=== PATIENT | female | born 1955 | race American Indian/Alaskan Native ===

== ENCOUNTER 2018-01-20 02:36 | Emergency (ER) | payer MEDICARE ==
[2018-01-20 02:51] VITALS: BMI 29.5
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
[2018-01-20] MEDS: Albuterol-Ipratrop 3 mg / 0.5 (3 ml) UD IH SCH ×3 (03:20→03:45)
[2018-01-20] MEDS ORDERED: Promethazine/Cod 6.25mg-10mg/5ml Syr UD PO STA (03:24)
[2018-01-20 06:37] VITALS: PULSE 80; RESP 18; O2SAT 98
--- NOTE | 2018-01-20 09:07 | RAD ---
Date of service: 01/20/2018 HISTORY: cp COMPARISON: CT 02/08/2016 FINDINGS: LUNGS: There is linear scarring in the left lung apex with pleural thickening. This is unchanged PLEURA: No significant pleural effusion identified, no pneumothorax apparent. CARDIOVASCULAR: No aortic atherosclerotic calcification present. Normal cardiac size. No pulmonary vascular congestion. OSSEOUS STRUCTURES: No significant abnormalities. VISUALIZED UPPER ABDOMEN: Normal. OTHER FINDINGS: None. IMPRESSION: No active disease.
== END 2018-01-20 06:37 | disposition home or self-care (01) ==
LOC: ED 02:36
DX: H66.92 Otitis media, unspecified, left ear (principal); T59.891A Toxic effect of other specified gases, fumes and vapors, accidental (unintentional), initial encounter; Y92.009 Unspecified place in unspecified non-institutional (private) residence as the place of occurrence of the external cause; I10 Essential (primary) hypertension; F17.210 Nicotine dependence, cigarettes, uncomplicated

== ENCOUNTER 2018-02-26 07:55 | Day surgery (SDC) | payer MEDICARE ==
[2018-02-26] MEDS ORDERED: Propofol 10 mg/ml Inj (20 ML) ONE (09:33)
[2018-02-26] MEDS ORDERED: Sodium Chloride 0.9% 1,000 ML IV SCH (10:30)
[2018-02-26 11:13] VITALS: BP 131/82; RESP 16; O2SAT 96
[2018-02-26 11:14] VITALS: PULSE 65; TEMP 98
== END 2018-02-26 11:53 | disposition home or self-care (01) ==
LOC: ENDO 07:55
PROVIDERS: ATTEND Internal Medicine Gastroenterology
DX: Z12.11 Encounter for screening for malignant neoplasm of colon (principal); D12.2 Benign neoplasm of ascending colon; D12.4 Benign neoplasm of descending colon; K62.1 Rectal polyp; K64.1 Second degree hemorrhoids; K59.00 Constipation, unspecified
CPT/HCPCS: 45385; 88305; J2001; J2704; J7030; J7040

== ENCOUNTER 2018-03-12 10:54 | Outpatient (CLI) | payer MEDICARE | END 2018-03-12 10:55 | disposition home or self-care (01) | LOC: RAD 10:54 ==